=== PATIENT | female | born 1935 | race Caucasian/White ===

== ENCOUNTER 2018-06-26 16:33 | Inpatient (IN) | payer OTHER ==
[~2018-06-26] VITALS: Ht 175.3 cm; Wt 95.0 kg
[2018-06-26 17:10] LABS: BASOPHIL % 0.3 % (0-2); PLATELET COUNT 231 x10^3mcL (130-400)
[2018-06-26 17:11] LABS: RED CELL DISTRIBUTION WIDTH 15.4 % (11.5-14.5)
[2018-06-26 17:20] LABS: CALCIUM 8.1 mg/dL (8.5-10.1); CARBON DIOXIDE 29.1 mmol/L (21-32); CHLORIDE SERUM 106 mmol/L (98-107); CREATININE SERUM 1.5 mg/dL (0.6-1.0); GLUCOSE SERUM 130 mg/dL (74-106); POTASSIUM SERUM 3.3 mmol/L (3.5-5.1); SODIUM SERUM 145 mmol/L (136-145)
[2018-06-26 17:25] LABS: ALBUMIN 2.4 g/dL (3.4-5.0); ALKALINE PHOSPHATASE 41 U/L (46-116); ALT/SGPT 15 U/L (14-59); AST/SGOT 15 U/L (15-37); BILIRUBIN TOTAL 0.27 mg/dL (0.20-1.00); TOTAL PROTEIN, SERUM 7.3 g/dL (6.4-8.2)
[2018-06-26 18:44] LABS: AMPHETAMINE QUAL UR NONE DETECTED (See below)
[2018-06-26] MEDS ORDERED: ATIVAN0.5 M1 PO (19:14)
[2018-06-26] MEDS ORDERED: BIOTIN5000 MCG PO (19:15)
[2018-06-26] MEDS ORDERED: DEPAKOTE ER500 MG PO (19:15)
[2018-06-26] MEDS ORDERED: LISINOPRIL40 MG PO (19:16)
[2018-06-26] MEDS ORDERED: IMODIUM A-D2 M3 PO (19:16)
[2018-06-26] MEDS ORDERED: NAMENDA10 M2 PO (19:17)
[2018-06-26] MEDS ORDERED: GOOD SENSE OMEP20 MG PO (19:17)
[2018-06-26] MEDS ORDERED: NORCO1 TA2 PO (19:17)
[2018-06-26] MEDS ORDERED: MIRTAZAPINE45 M1 PO (19:17)
[2018-06-26 19:40] LABS: T3 TOTAL 0.75 ng/mL
[2018-06-26 19:43] LABS: CHOLESTEROL/HDL RATIO 2.7; MAGNESIUM 2.3 mg/dL (1.8-2.4); PHOSPHOROUS 3.5 mg/dL (2.5-4.9)
[2018-06-26 19:44] LABS: FREE T4 0.9 ng/dL (0.76-1.46); FREE THYROXINE INDEX 1.9 ug/dL (1.4-4.5); T4(THYROXINE) 5.2 ug/dL (4.7-13.3)
[2018-06-26 20:48] VITALS: BP 142/68
[2018-06-27 05:11] VITALS: BP 116/62
[2018-06-27 06:32] LABS: CARBON DIOXIDE 28.9 mmol/L (21-32); CHLORIDE SERUM 106 mmol/L (98-107); CREATININE SERUM 1.2 mg/dL (0.6-1.0); GLUCOSE SERUM 92 mg/dL (74-106); PHOSPHOROUS 3.1 mg/dL (2.5-4.9); POTASSIUM SERUM 3.4 mmol/L (3.5-5.1); SODIUM SERUM 143 mmol/L (136-145)
[2018-06-27 07:05] LABS: BASOPHIL % 0.4 % (0-2); PLATELET COUNT 197 x10^3mcL (130-400)
[2018-06-27 07:16] LABS: RED CELL DISTRIBUTION WIDTH 15.2 % (11.5-14.5)
[2018-06-27 20:41] VITALS: BP 158/80
[2018-06-28 05:04] VITALS: BP 156/91; BP 162/78
[2018-06-28 07:02] LABS: BASOPHIL % 0.5 % (0-2); PLATELET COUNT 227 x10^3mcL (130-400)
[2018-06-28 07:23] VITALS: BP 146/90
[2018-06-28 07:27] LABS: CALCIUM 8.4 mg/dL (8.5-10.1); CHLORIDE SERUM 107 mmol/L (98-107); GLUCOSE SERUM 100 mg/dL (74-106); MAGNESIUM 2.1 mg/dL (1.8-2.4); PHOSPHOROUS 3.1 mg/dL (2.5-4.9); POTASSIUM SERUM 3.3 mmol/L (3.5-5.1); SODIUM SERUM 145 mmol/L (136-145)
[2018-06-28 07:40] LABS: RED CELL DISTRIBUTION WIDTH 15.1 % (11.5-14.5)
[2018-06-28 12:11] VITALS: BP 145/61
[2018-06-28 18:53] VITALS: BP 143/78
[2018-06-28 22:28] VITALS: BP 140/73
[2018-06-29 06:08] VITALS: BP 175/77
[2018-06-29 06:26] LABS: CALCIUM 8.7 mg/dL (8.5-10.1); CARBON DIOXIDE 31.8 mmol/L (21-32); CHLORIDE SERUM 106 mmol/L (98-107); GLUCOSE SERUM 100 mg/dL (74-106); POTASSIUM SERUM 3.9 mmol/L (3.5-5.1); SODIUM SERUM 144 mmol/L (136-145)
[2018-06-29 06:34] LABS: BASOPHIL % 0.9 % (0-2); PLATELET COUNT 283 x10^3mcL (130-400); RED CELL DISTRIBUTION WIDTH 14.3 % (11.5-14.5)
[2018-06-29 08:44] VITALS: BP 163/94
[2018-06-29 13:22] VITALS: BP 156/99
[2018-06-29 17:45] VITALS: BP 184/97
[2018-06-29 21:56] VITALS: BP 139/75
[2018-06-30 06:27] VITALS: BP 140/75
[2018-06-30 09:07] VITALS: Ht 175.3 cm; Wt 95.0 kg
[2018-06-30 12:54] VITALS: BP 125/70
[2018-06-30 17:00] VITALS: BP 146/88
[2018-07-01 06:03] VITALS: BP 166/85
[2018-07-01 06:29] LABS: BASOPHIL % 1.3 % (0-2); PLATELET COUNT 304 x10^3mcL (130-400); RED CELL DISTRIBUTION WIDTH 14.1 % (11.5-14.5)
[2018-07-01 06:49] LABS: CALCIUM 8.7 mg/dL (8.5-10.1); CARBON DIOXIDE 29.1 mmol/L (21-32); CHLORIDE SERUM 105 mmol/L (98-107); GLUCOSE SERUM 98 mg/dL (74-106); MAGNESIUM 2.2 mg/dL (1.8-2.4); POTASSIUM SERUM 3.7 mmol/L (3.5-5.1); SODIUM SERUM 143 mmol/L (136-145)
[2018-07-01 09:30] VITALS: BP 128/74
[2018-07-01 21:56] VITALS: BP 155/82
[2018-07-02 06:06] VITALS: BP 138/67
[2018-07-02 06:22] LABS: BASOPHIL % 0.8 % (0-2); PLATELET COUNT 307 x10^3mcL (130-400)
[2018-07-02 06:25] LABS: CALCIUM 8.4 mg/dL (8.5-10.1); CARBON DIOXIDE 30.9 mmol/L (21-32); CHLORIDE SERUM 106 mmol/L (98-107); GLUCOSE SERUM 103 mg/dL (74-106); POTASSIUM SERUM 3.3 mmol/L (3.5-5.1); SODIUM SERUM 143 mmol/L (136-145)
[2018-07-02 06:32] LABS: RED CELL DISTRIBUTION WIDTH 14.9 % (11.5-14.5)
[2018-07-02 10:12] VITALS: BP 174/95
[2018-07-02 20:23] VITALS: BP 121/58
[2018-07-03 07:31] VITALS: BP 150/84
[2018-07-03 11:40] VITALS: BP 126/74
[2018-07-03 17:59] VITALS: BP 126/77
[2018-07-03 23:54] VITALS: BP 112/65
[2018-07-04 05:57] VITALS: BP 155/82
[2018-07-04 08:00] VITALS: BP 104/73
[2018-07-04 08:09] LABS: BASOPHIL % 1.2 % (0-2); PLATELET COUNT 352 x10^3mcL (130-400)
[2018-07-04 08:10] LABS: RED CELL DISTRIBUTION WIDTH 15.3 % (11.5-14.5)
[2018-07-04 08:22] LABS: CALCIUM 9.3 mg/dL (8.5-10.1); CARBON DIOXIDE 29.6 mmol/L (21-32); CHLORIDE SERUM 103 mmol/L (98-107); CREATININE SERUM 1.3 mg/dL (0.6-1.0); GLUCOSE SERUM 108 mg/dL (74-106); POTASSIUM SERUM 3.9 mmol/L (3.5-5.1); SODIUM SERUM 139 mmol/L (136-145)
[2018-07-04 18:03] VITALS: BP 107/67
[2018-07-04 20:10] VITALS: BP 101/56
[2018-07-05 06:23] VITALS: BP 149/89
[2018-07-05 07:22] LABS: CALCIUM 9.2 mg/dL (8.5-10.1); CARBON DIOXIDE 30.1 mmol/L (21-32); CHLORIDE SERUM 102 mmol/L (98-107); CREATININE SERUM 1.1 mg/dL (0.6-1.0); GLUCOSE SERUM 103 mg/dL (74-106); POTASSIUM SERUM 4.3 mmol/L (3.5-5.1); SODIUM SERUM 140 mmol/L (136-145)
[2018-07-05 12:00] VITALS: BP 153/84
[2018-07-05 17:51] VITALS: BP 157/78
[2018-07-06 01:13] VITALS: BP 150/72
[2018-07-06 05:37] VITALS: BP 126/77
[2018-07-06 07:17] LABS: CALCIUM 8.8 mg/dL (8.5-10.1); CARBON DIOXIDE 31.6 mmol/L (21-32); CHLORIDE SERUM 106 mmol/L (98-107); CREATININE SERUM 1.1 mg/dL (0.6-1.0); GLUCOSE SERUM 99 mg/dL (74-106); POTASSIUM SERUM 4.3 mmol/L (3.5-5.1); SODIUM SERUM 142 mmol/L (136-145)
[2018-07-06 09:00] VITALS: BP 93/62
[2018-07-06 17:45] VITALS: BP 138/74
[2018-07-06 19:59] VITALS: BP 139/68
[2018-07-07 07:01] VITALS: BP 143/58
[2018-07-07 09:53] VITALS: BP 151/95
[2018-07-07 18:08] VITALS: BP 149/68
[2018-07-07 22:00] VITALS: BP 134/66
[2018-07-08 06:01] VITALS: BP 125/65
[2018-07-08 06:35] LABS: CALCIUM 8.9 mg/dL (8.5-10.1); CARBON DIOXIDE 29.7 mmol/L (21-32); CHLORIDE SERUM 103 mmol/L (98-107); CREATININE SERUM 1.1 mg/dL (0.6-1.0); GLUCOSE SERUM 103 mg/dL (74-106); POTASSIUM SERUM 4.6 mmol/L (3.5-5.1); SODIUM SERUM 139 mmol/L (136-145)
[2018-07-08 06:47] LABS: BASOPHIL % 0.8 % (0-2); PLATELET COUNT 255 x10^3mcL (130-400); RED CELL DISTRIBUTION WIDTH 15.7 % (11.5-14.5)
[2018-07-08 07:49] VITALS: BP 154/79
[2018-07-08 17:16] VITALS: BP 136/79
[2018-07-08 21:44] VITALS: BP 160/84
[2018-07-09 05:56] VITALS: BP 112/69
[2018-07-09 06:30] LABS: CHLORIDE SERUM 105 mmol/L (98-107); GLUCOSE SERUM 99 mg/dL (74-106); POTASSIUM SERUM 4.4 mmol/L (3.5-5.1); SODIUM SERUM 139 mmol/L (136-145)
[2018-07-09 07:39] LABS: BASOPHIL % 1.1 % (0-2); PLATELET COUNT 252 x10^3mcL (130-400)
[2018-07-09 07:40] LABS: RED CELL DISTRIBUTION WIDTH 15.7 % (11.5-14.5)
[2018-07-09 08:26] VITALS: BP 137/85
[2018-07-09 18:36] VITALS: BP 115/65
[2018-07-10 07:23] VITALS: BP 123/68
[2018-07-10 07:28] LABS: BASOPHIL % 1.5 % (0-2); PLATELET COUNT 261 x10^3mcL (130-400)
[2018-07-10 07:31] LABS: RED CELL DISTRIBUTION WIDTH 14.7 % (11.5-14.5)
[2018-07-10 07:59] LABS: CALCIUM 9.5 mg/dL (8.5-10.1); CARBON DIOXIDE 25.4 mmol/L (21-32); CHLORIDE SERUM 102 mmol/L (98-107); CREATININE SERUM 1.1 mg/dL (0.6-1.0); GLUCOSE SERUM 107 mg/dL (74-106); POTASSIUM SERUM 4.7 mmol/L (3.5-5.1); SODIUM SERUM 137 mmol/L (136-145)
[2018-07-10 17:42] VITALS: BP 110/65
[2018-07-11 05:52] VITALS: BP 159/86
[2018-07-11 07:28] LABS: BASOPHIL % 1.1 % (0-2); CALCIUM 8.6 mg/dL (8.5-10.1); CARBON DIOXIDE 27.2 mmol/L (21-32); CHLORIDE SERUM 99 mmol/L (98-107); CREATININE SERUM 1.1 mg/dL (0.6-1.0); GLUCOSE SERUM 90 mg/dL (74-106); PLATELET COUNT 216 x10^3mcL (130-400); POTASSIUM SERUM 4.3 mmol/L (3.5-5.1); SODIUM SERUM 134 mmol/L (136-145)
[2018-07-11 07:38] LABS: RED CELL DISTRIBUTION WIDTH 15.6 % (11.5-14.5)
[2018-07-11 09:30] VITALS: BP 134/67
[2018-07-11 19:55] VITALS: BP 116/59
[2018-07-12 05:58] VITALS: BP 136/80
[2018-07-12 09:35] VITALS: BP 131/76
[2018-07-12 18:00] VITALS: BP 131/54
[2018-07-12 20:29] VITALS: BP 105/61
[2018-07-13 08:53] VITALS: BP 138/73
[2018-07-13 13:55] VITALS: BP 130/82
[2018-07-13 18:16] VITALS: BP 104/60
[2018-07-13 21:00] VITALS: BP 124/77
[2018-07-14 06:40] VITALS: BP 148/83
[2018-07-14 08:42] VITALS: BP 100/65
[2018-07-14 13:29] VITALS: BP 147/79
[2018-07-14 17:44] VITALS: BP 109/80
[2018-07-14 20:42] VITALS: BP 104/75
[2018-07-15 05:25] VITALS: BP 125/77
[2018-07-15 06:12] LABS: PLATELET COUNT 212 x10^3mcL (130-400)
[2018-07-15 06:23] LABS: RED CELL DISTRIBUTION WIDTH 15.7 % (11.5-14.5)
[2018-07-15 06:37] LABS: CALCIUM 8.4 mg/dL (8.5-10.1); CARBON DIOXIDE 29.4 mmol/L (21-32); CHLORIDE SERUM 99 mmol/L (98-107); CREATININE SERUM 1.1 mg/dL (0.6-1.0); GLUCOSE SERUM 96 mg/dL (74-106); MAGNESIUM 2.1 mg/dL (1.8-2.4); PHOSPHOROUS 4.7 mg/dL (2.5-4.9); POTASSIUM SERUM 4.6 mmol/L (3.5-5.1); SODIUM SERUM 135 mmol/L (136-145)
[2018-07-15 08:37] VITALS: BP 120/54
[2018-07-15 18:36] VITALS: BP 136/66
[2018-07-15 20:26] VITALS: BP 113/61
[2018-07-16 06:20] VITALS: BP 129/65
[2018-07-16 07:16] VITALS: BP 130/68
[2018-07-16 12:01] VITALS: BP 133/70
[2018-07-16 14:16] VITALS: BP 133/70
[2018-07-16 18:22] VITALS: BP 135/74
[2018-07-16 20:10] VITALS: BP 127/70
[2018-07-17 05:53] VITALS: BP 111/72
[2018-07-17 09:30] VITALS: BP 105/56
[2018-07-17 16:07] VITALS: BP 130/70
== END 2018-07-17 18:16 | DRG 56 ==
LOC: ED 16:33 → EDBD 16:33 → DU 19:06 → MU 19:06 → DU 06-28 02:32 → MU 07-01 17:06 → DU 07-12 23:51 → MU 07-14 19:51
PROVIDERS: Emergency Medicine; Family Medicine; ADMIT Internal Medicine
DX: G30.9 Alzheimer's disease, unspecified (principal); E43 Unspecified severe protein-calorie malnutrition; N17.0 Acute kidney failure with tubular necrosis; G93.41 Metabolic encephalopathy; N39.0 Urinary tract infection, site not specified; B96.20 Unspecified Escherichia coli [E. coli] as the cause of diseases classified elsewhere; F31.9 Bipolar disorder, unspecified; F02.80 Dementia in other diseases classified elsewhere, unspecified severity, without behavioral disturbance, psychotic disturbance, mood disturbance, and anxiety; B96.29 Other Escherichia coli [E. coli] as the cause of diseases classified elsewhere; F41.1 Generalized anxiety disorder; I10 Essential (primary) hypertension; R73.03 Prediabetes; E87.6 Hypokalemia; D64.9 Anemia, unspecified; F12.10 Cannabis abuse, uncomplicated; Z68.32 Body mass index [BMI] 32.0-32.9, adult; Z22.322 Carrier or suspected carrier of Methicillin resistant Staphylococcus aureus
CPT/HCPCS: 82962; 83880; 84439; 97110-GP; 97112-GP; 97116-GP; 97530-GP; G0480; J0696; J1630; J1885; J2060; J2405; J3230; J3486; J3490; J7030; J7050; Q0092